=== PATIENT | female | born 1960 | race Hispanic/Latino ===

== ENCOUNTER 2017-07-17 22:13 | Emergency (ER) | payer SELFPAY ==
[~2017-07-17] VITALS: Ht 149.9 cm; Wt 66.2 kg
[2017-07-18] MEDS ORDERED: ONDANSETRON HCL 4 MG ORAL DISINTEGRATING TAB PO ONE
[2017-07-18 00:30] LABS: BILIRUBIN,URINE 1+ (NEGATIVE); KETONES,URINE TRACE (NEGATIVE); LEUKOCYTE ESTERASE ,URINE 2+ (NEGATIVE); NITRITE,URINE NEGATIVE (NEGATIVE); PROTEIN,URINE DIPSTICK 3+ (NEGATIVE); URINE UROBILINOGEN 0.2 mg/dL (0.2 - 1)
[2017-07-18 00:33] LABS: CLARITY,URINE SL CLOUDY (CLEAR); COLOR,URINE YELLOW (YELLOW)
[2017-07-18 00:45] LABS: BACTERIA,URINE MANY /HPF; EPITHELIAL CELLS,URINE FEW /LPF; WBC,URINE (MAN) 21-50 /HPF (0-5)
== END 2017-07-18 01:00 | disposition left against medical advice (07) ==
LOC: ER 22:13
DX: R50.9 Fever, unspecified (principal)
CPT/HCPCS: 36415; 81001; 82948; 87086; 87186; 87400; 93005

== ENCOUNTER 2021-01-23 23:55 | Emergency (ER) | payer SELFPAY ==
[~2021-01-23] VITALS: Ht 149.9 cm; Wt 66.2 kg
== END 2021-01-24 03:35 | disposition home or self-care (01) ==
LOC: ER 01-24 01:00
DX: R05 Cough (principal); R19.7 Diarrhea, unspecified; Z20.822 Contact with and (suspected) exposure to COVID-19; I10 Essential (primary) hypertension; E11.9 Type 2 diabetes mellitus without complications; E78.5 Hyperlipidemia, unspecified
CPT/HCPCS: 71045; 99282; U0002

== ENCOUNTER 2021-03-23 09:54 | Emergency (ER) | payer SELFPAY ==
[~2021-03-23] VITALS: Ht 149.9 cm; Wt 66.2 kg
[2021-03-23 10:37] LABS: BASOPHILS # (AUTO) 0.1 (0.0-0.1); BASOPHILS % 0.9 % (0.0-1.0); EOSINOPHILS # (AUTO) 0.1 (0.0-0.4); EOSINOPHILS % 0.9 % (0.0-6.0); HEMOGLOBIN 12.9 g/dL (12.0-16.0); LYMPHOCYTES # (AUTO) 2.7 (1.0-3.2); LYMPHOCYTES % 23.1 % (18.0-39.1); MEAN CORPUSCULAR HEMOGLOBIN 27.9 pg (28-32); MEAN CORPUSCULAR HGB CONC 32.3 g/dL (31-35); MEAN CORPUSCULAR VOLUME 86.6 fL (81-99); MONOCYTES # (AUTO) 0.8 (0.2-0.8); MONOCYTES % 6.8 % (4.4-11.3); NEUTROPHILS # (AUTO) 7.9 (2.1-6.9); NEUTROPHILS % 67.4 % (38.7-80.0); PLATELET COUNT 310 x10e3/uL (140-360); RED BLOOD COUNT 4.62 x10e6/uL (3.6-5.1); RED CELL DISTRIBUTION WIDTH 13.4 % (11.7-14.4)
[2021-03-23 10:45] LABS: CLARITY,URINE HAZY (CLEAR); COLOR,URINE YELLOW (YELLOW); LEUKOCYTE ESTERASE ,URINE TRACE (NEGATIVE)
[2021-03-23 10:46] LABS: KETONES,URINE NEGATIVE (NEGATIVE); NITRITE,URINE NEGATIVE (NEGATIVE); PROTEIN,URINE DIPSTICK >=300 (NEGATIVE); URINE UROBILINOGEN 0.2 mg/dL (0.2 - 1)
[2021-03-23 10:58] LABS: BACTERIA,URINE FEW /HPF; RBC,URINE 0-5 /HPF (0-5); WBC,URINE (MAN) >50 /HPF (0-5)
[2021-03-23 10:59] LABS: TRANSITIONAL EPI CELLS,URINE MODERATE
[2021-03-23 11:02] LABS: ALBUMIN 2.9 g/dL (3.5-5.0); ALBUMIN/GLOBULIN RATIO 0.7 (0.8-2.0); ANION GAP 13.8 mmol/L (8-16); CALCIUM 8.6 mg/dL (8.4-10.2); CREATININE, SERUM 1.78 mg/dL (0.57-1.11); POTASSIUM 3.8 mmol/L (3.5-5.1)
[2021-03-23 11:11] LABS: EPITHELIAL CELLS,URINE RARE /LPF
[2021-03-23] MEDS ORDERED: CEFTRIAXONE 1 GM in SODIUM CHLORIDE 0.9% 50ML 50 ML IV ONE (11:30)
[2021-03-23] MEDS ORDERED: SODIUM CHLORIDE 0.9% 1000ML 1,000 ML IV SCH (12:30)
[2021-03-23] MEDS ORDERED: SODIUM CHLORIDE 0.9% 1000ML 1,000 ML ONE (12:31)
[2021-03-23 13:46] VITALS: BP 166/85
== END 2021-03-23 13:58 | disposition home or self-care (01) ==
LOC: ER 10:10
DX: N39.0 Urinary tract infection, site not specified (principal); N28.9 Disorder of kidney and ureter, unspecified; M54.5 Low back pain; E11.65 Type 2 diabetes mellitus with hyperglycemia; I10 Essential (primary) hypertension; E78.5 Hyperlipidemia, unspecified
CPT/HCPCS: 36415; 74176; 80053; 81001; 85025; 87086; 99284; J0696; J7030; 87186

== ENCOUNTER 2021-04-25 23:10 | Emergency (ER) | payer SELFPAY ==
[~2021-04-25] VITALS: Ht 149.9 cm; Wt 66.2 kg
[2021-04-25] MEDS ORDERED: SODIUM CHLORIDE 0.9% 1000ML 1,000 ML IV STA (23:16)
[2021-04-25] MEDS ORDERED: ASPIRIN 81 MG CHEW TAB PO ONE (23:30)
[2021-04-25 23:36] LABS: BASOPHILS # (AUTO) 0.1 (0.0-0.1); BASOPHILS % 1.1 % (0.0-1.0); EOSINOPHILS # (AUTO) 0.1 (0.0-0.4); EOSINOPHILS % 1.7 % (0.0-6.0); HEMATOCRIT 38.9 % (34.2-44.1); HEMOGLOBIN 12.6 g/dL (12.0-16.0); LYMPHOCYTES # (AUTO) 2.5 (1.0-3.2); LYMPHOCYTES % 34.9 % (18.0-39.1); MEAN CORPUSCULAR HGB CONC 32.4 g/dL (31-35); MEAN CORPUSCULAR VOLUME 86.4 fL (81-99); MONOCYTES # (AUTO) 0.4 (0.2-0.8); MONOCYTES % 4.9 % (4.4-11.3); NEUTROPHILS # (AUTO) 4.1 (2.1-6.9); NEUTROPHILS % 57.1 % (38.7-80.0); PLATELET COUNT 261 x10e3/uL (140-360); RED CELL DISTRIBUTION WIDTH 12.9 % (11.7-14.4)
[2021-04-25 23:39] LABS: CLARITY,URINE SL CLOUDY (CLEAR); COLOR,URINE YELLOW (YELLOW); KETONES,URINE NEGATIVE (NEGATIVE); LEUKOCYTE ESTERASE ,URINE NEGATIVE (NEGATIVE); NITRITE,URINE NEGATIVE (NEGATIVE); PROTEIN,URINE DIPSTICK >=300 (NEGATIVE); URINE UROBILINOGEN 0.2 mg/dL (0.2 - 1)
[2021-04-25 23:43] LABS: BACTERIA,URINE FEW /HPF; EPITHELIAL CELLS,URINE RARE /LPF
[2021-04-25] MEDS ORDERED: ONDANSETRON HCL INJ 2MG/ML 2ML 2 MG/ML VIAL IV STA (23:43)
[2021-04-25] MEDS ORDERED: Morphine 4mg Syringe 4 MG/ML INJ IV ONE (23:45)
[2021-04-25 23:53] LABS: ALANINE AMINOTRANSFERASE 20 IU/L (0-55); ALBUMIN 2.7 g/dL (3.5-5.0); ALBUMIN/GLOBULIN RATIO 0.7 (0.8-2.0); ALKALINE PHOSPHATASE 160 IU/L (40-150); ANION GAP 15.7 mmol/L (8-16); BLOOD UREA NITROGEN 37 mg/dL (7-26); BUN/CREATININE RATIO 23 (6-25); CALCIUM 8.2 mg/dL (8.4-10.2); CARBON DIOXIDE 23 mmol/L (22-29); CHLORIDE 103 mmol/L (98-107); CREATINE KINASE 68 IU/L (29-168); CREATININE, SERUM 1.59 mg/dL (0.57-1.11); EST GLOMERULAR FILTRATION RATE 33 ML/MIN (60-); GLUCOSE 362 mg/dL (74-118); POTASSIUM 4.7 mmol/L (3.5-5.1); SODIUM 137 mmol/L (136-145)
[2021-04-26] MEDS ORDERED: FAMOTIDINE 20 MG/2 ML VIAL IV STA (00:02)
[2021-04-26] MEDS ORDERED: IOPAMIDOL 370 MG/ML 200 ML INFUS..BTL INJ ONE (00:24)
[2021-04-26] MEDS ORDERED: SODIUM CHLORIDE 0.9% 50ML 50 ML ONE (00:24)
[2021-04-26] MEDS ORDERED: HYDRALAZINE HCL 20 MG/ML VIAL IV ONE (01:45)
[2021-04-26] MEDS ORDERED: HYDRALAZINE HCL 20 MG/ML VIAL ONE (01:45)
== END 2021-04-26 02:20 | disposition home or self-care (01) ==
LOC: ER 23:16
DX: R10.11 Right upper quadrant pain (principal); R68.84 Jaw pain; I10 Essential (primary) hypertension
CPT/HCPCS: 36415; 71045; 74177; 80053; 81001; 82550; 82553; 83518; 83880; 84484; 85025; 87070; 93005; 99284; J0360; J2270; J2405; J7030; Q9967

== ENCOUNTER 2021-09-26 18:43 | Emergency (ER) | payer SELFPAY ==
[~2021-09-26] VITALS: Ht 149.9 cm; Wt 66.2 kg
[2021-09-26] MEDS ORDERED: HYDROCODONE/APAP 7.5MG-325MG 1 EA TAB PO ONE (19:00)
[2021-09-26] MEDS ORDERED: METOPROLOL TARTRATE 50 MG TAB PO ONE (19:15)
[2021-09-26] MEDS ORDERED: VOLTAREN ARTHRI20 GM TOP (20:55)
[2021-09-27 00:43] VITALS: BP 166/67
== END 2021-09-26 22:37 | disposition home or self-care (01) ==
LOC: ER 19:40
DX: M79.604 Pain in right leg (principal); I10 Essential (primary) hypertension; E11.9 Type 2 diabetes mellitus without complications; E78.5 Hyperlipidemia, unspecified
CPT/HCPCS: 93971

== ENCOUNTER 2021-12-15 07:32 | Emergency (ER) | payer SELFPAY ==
[~2021-12-15] VITALS: Ht 149.9 cm; Wt 66.2 kg
[~2021-12-15 07:32] MED LIST: BACTRIM DS TAB1 EACH PO; VOLTAREN ARTHRI20 GM TOP
== END 2021-12-15 08:37 | disposition home or self-care (01) ==
LOC: ER 07:42
DX: R51.9 Headache, unspecified (principal); M62.838 Other muscle spasm; I10 Essential (primary) hypertension; E11.9 Type 2 diabetes mellitus without complications; E78.5 Hyperlipidemia, unspecified
CPT/HCPCS: 99283

== ENCOUNTER 2022-01-24 19:51 | Emergency (ER) | payer SELFPAY ==
[~2022-01-24] VITALS: Ht 149.9 cm; Wt 66.2 kg
== END 2022-01-24 22:16 | disposition home or self-care (01) ==
LOC: ER 20:08
DX: J02.9 Acute pharyngitis, unspecified (principal); H92.03 Otalgia, bilateral; T78.40XA Allergy, unspecified, initial encounter; I10 Essential (primary) hypertension; E11.9 Type 2 diabetes mellitus without complications; E78.5 Hyperlipidemia, unspecified; Z20.822 Contact with and (suspected) exposure to COVID-19
CPT/HCPCS: 83518; 87070; 99282; U0002

== ENCOUNTER 2022-04-04 21:32 | Emergency (ER) | payer SELFPAY ==
[~2022-04-04] VITALS: Ht 149.9 cm; Wt 66.2 kg
[2022-04-04] MEDS ORDERED: SODIUM CHLORIDE 0.9% 1000ML 1,000 ML IV ONE (22:15)
[2022-04-04] MEDS ORDERED: INSULIN REGULAR, HUMAN 100 UNIT/1 ML SQ ONE (22:15)
[2022-04-04] MEDS ORDERED: INSULIN REGULAR, HUMAN 100 UNIT/1 ML IV ONE (22:15)
[2022-04-04 22:22] LABS: BASOPHILS % 0.4 % (0.0-1.0); EOSINOPHILS # (AUTO) 0.1 (0.0-0.4); EOSINOPHILS % 1.6 % (0.0-6.0); HEMATOCRIT 39.3 % (34.2-44.1); HEMOGLOBIN 12.7 g/dL (12.0-16.0); LYMPHOCYTES # (AUTO) 1.6 (1.0-3.2); LYMPHOCYTES % 23.5 % (18.0-39.1); MEAN CORPUSCULAR HEMOGLOBIN 27.7 pg (28-32); MEAN CORPUSCULAR HGB CONC 32.3 g/dL (31-35); MEAN CORPUSCULAR VOLUME 85.6 fL (81-99); MONOCYTES # (AUTO) 0.4 (0.2-0.8); NEUTROPHILS # (AUTO) 4.6 (2.1-6.9); NEUTROPHILS % 68.1 % (38.7-80.0); PLATELET COUNT 251 x10e3/uL (140-360); RED BLOOD COUNT 4.59 x10e6/uL (3.6-5.1); RED CELL DISTRIBUTION WIDTH 11.9 % (11.7-14.4)
[2022-04-04 22:42] LABS: ALANINE AMINOTRANSFERASE 11 IU/L (0-55); ALBUMIN 2.1 g/dL (3.5-5.0); ALBUMIN/GLOBULIN RATIO 0.5 (0.8-2.0); ALKALINE PHOSPHATASE 221 IU/L (40-150); ANION GAP 15.8 mmol/L (8-16); BLOOD UREA NITROGEN 24 mg/dL (7-26); BUN/CREATININE RATIO 16 (6-25); CALCIUM 8.5 mg/dL (8.4-10.2); CARBON DIOXIDE 23 mmol/L (22-29); CHLORIDE 96 mmol/L (98-107); CREATINE KINASE 76 IU/L (29-168); CREATININE, SERUM 1.48 mg/dL (0.57-1.11); POTASSIUM 3.8 mmol/L (3.5-5.1); SODIUM 131 mmol/L (136-145)
[2022-04-04 22:47] LABS: GLUCOSE 727 mg/dL (74-118)
[2022-04-04] MEDS ORDERED: SODIUM CHLORIDE 0.9% 1000ML 1,000 ML IV SCH (23:00)
[2022-04-04 23:29] LABS: CLARITY,URINE CLEAR (CLEAR); COLOR,URINE YELLOW (YELLOW); LEUKOCYTE ESTERASE ,URINE NEGATIVE (NEGATIVE); NITRITE,URINE NEGATIVE (NEGATIVE); PROTEIN,URINE DIPSTICK >=300 (NEGATIVE)
[2022-04-04 23:30] LABS: KETONES,URINE NEGATIVE (NEGATIVE); URINE UROBILINOGEN 0.2 mg/dL (0.2 - 1)
[2022-04-04 23:32] LABS: BACTERIA,URINE FEW /HPF; EPITHELIAL CELLS,URINE MODERATE /LPF; RBC,URINE 0-5 /HPF (0-5)
[2022-04-05] MEDS ORDERED: CEFDINIR300 MG PO (00:50)
[2022-04-05 01:44] VITALS: BP 178/81
== END 2022-04-05 01:16 | disposition home or self-care (01) ==
LOC: ER 21:39
DX: R53.1 Weakness (principal); E11.65 Type 2 diabetes mellitus with hyperglycemia; N39.0 Urinary tract infection, site not specified; I10 Essential (primary) hypertension; E78.5 Hyperlipidemia, unspecified; R94.31 Abnormal electrocardiogram [ECG] [EKG]
CPT/HCPCS: 36415; 70450; 71045; 80053; 81001; 82550; 82553; 82948; 84484; 85025; 93005; 99284; J1817; J7030

== ENCOUNTER 2022-04-26 22:43 | Emergency (ER) | payer SELFPAY ==
[~2022-04-26] VITALS: Ht 149.9 cm; Wt 66.2 kg
[~2022-04-26 22:43] MED LIST changes: +CEFDINIR300 MG PO
[2022-04-26] MEDS ORDERED: KETOROLAC TROMETHAMINE 60 MG/2 ML VIAL IM ONE (23:15)
[2022-04-26] MEDS ORDERED: DEXAMETHASONE 4 MG TAB PO ONE (23:15)
[2022-04-26 23:50] LABS: COLOR,URINE YELLOW (YELLOW); KETONES,URINE NEGATIVE (NEGATIVE); LEUKOCYTE ESTERASE ,URINE TRACE (NEGATIVE); NITRITE,URINE NEGATIVE (NEGATIVE); PROTEIN,URINE DIPSTICK >=300 (NEGATIVE)
[2022-04-26 23:51] LABS: URINE UROBILINOGEN 0.2 mg/dL (0.2 - 1)
[2022-04-26 23:59] LABS: BACTERIA,URINE MANY /HPF; CLARITY,URINE CLOUDY (CLEAR); EPITHELIAL CELLS,URINE FEW /LPF; WBC,URINE (MAN) >50 /HPF (0-5)
[2022-04-27] MEDS ORDERED: NAPROSYN500 MG PO (02:32)
[2022-04-27] MEDS ORDERED: CEFDINIR300 MG PO (02:32)
[2022-04-27] MEDS ORDERED: METHOCARBAMOL500 MG PO (02:32)
[2022-04-27 03:10] VITALS: BP 166/76
== END 2022-04-27 02:35 | disposition home or self-care (01) ==
LOC: ER 22:56
DX: M54.41 Lumbago with sciatica, right side (principal); I12.9 Hypertensive chronic kidney disease with stage 1 through stage 4 chronic kidney disease, or unspecified chronic kidney disease; E11.22 Type 2 diabetes mellitus with diabetic chronic kidney disease; N18.9 Chronic kidney disease, unspecified; E78.5 Hyperlipidemia, unspecified
CPT/HCPCS: 36415; 72100; 81001; 82948; 99283; J1885; J8540